=== PATIENT | male | born 1985 | race Caucasian/White ===

== ENCOUNTER 2024-03-30 01:33 | Emergency (ER) | payer MEDICAID, SELFPAY ==
[2024-03-30 01:34] VITALS: BMI 25.6
[2024-03-30 01:48] VITALS: BP 132/84; PULSE 69; RESP 19; TEMP 36.6; O2SAT 98
--- NOTE | 2024-03-30 01:56 | PD.EDDENTL ---
ED Dental RME/HPI General Chief complaint: Dental/Oral/Throat Stated complaint: TOOTH PAIN Time Seen by Provider: 03/30/24 01:39 Source: patient Arrival date/time: 03/30/24 01:33 38-year-old male presents emergency department complaining of right upper tooth pain for approximately 1 week. Patient denies any fever, chills, cough, sore throat, ear pain, or any other associated symptom. Mode of arrival: ambulatory Limitations: no limitations Related Data Previous Rx's ?Medication ?Instructions ?Recorded amoxicillin 875 mg-potassium 1 tab PO BID 7 days #14 tabs 03/30/24 clavulanate 125 mg tablet ibuprofen 600 mg tablet 600 mg PO Q8H PRN pain #20 tabs 03/30/24 Allergies Allergy/AdvReac Type Severity Reaction Status Date / Time No Known Allergies Allergy Verified 03/30/24 01:35 Review of Systems Review of Systems Systems Reviewed: All systems reviewed, normal except as documented Constitutional Constitutional: Reports system reviewed and no additional complaints, except as documented, Denies body ache(s), Denies chills and Denies fever(s) Eyes Eyes: Reports system reviewed and no additional complaints, except as documented and Denies change in vision ENT Ears, Nose, Mouth, and Throat: Reports system reviewed and no additional complaints, except as documented, Denies disequilibrium, Denies dizziness, Reports mouth pain, Denies sore throat, Denies vertigo and Reports other (Tooth pain) Cardiovascular Cardiovascular: Reports system reviewed and no additional complaints, except as documented, Denies chest pain and Denies dyspnea Respiratory Respiratory: Reports system reviewed and no additional complaints, except as documented, Denies chest congestion, Denies cough and Denies dyspnea Gastrointestinal Gastrointestinal: Reports system reviewed and no additional complaints, except as documented, Denies abdominal pain, Denies nausea and Denies vomiting Musculoskeletal Musculoskeletal: Reports system reviewed and no additional complaints, except as documented, Denies abnormal gait and Denies arthralgias Integumentary/Breasts Skin/Breast: Reports system reviewed and no additional complaints, except as documented, Denies erythema, Denies rash and Denies wounds Neurologic Neurologic: Reports system reviewed and no additional complaints, except as documented, Denies abnormal gait, Denies disequilibrium, Denies dizziness and Denies vertigo Past Medical History Social History SMOKING STATUS: Current some day smoker ED Exam General Limitations: Present no limitations General appearance: Present alert and in no apparent distress Head Head exam: Present atraumatic Eye Eye exam: Present normal appearance, PERRL and EOMI ENT ENT exam: Present normal exam, normal oropharynx and mucous membranes moist Expanded ENT Exam Teeth exam: Present dental caries, dental tenderness # and gingival swelling Neck Neck exam: Present normal inspection, full ROM and trachea midline Chest Chest inspection: Present normal inspection and symmetric chest wall rise Respiratory Respiratory exam: Present normal lung sounds bilaterally Cardiovascular Cardiovascular exam: Present regular rate, normal rhythm and normal heart sounds Abdominal Exam Abdominal exam: Present soft and normal bowel sounds Extremities Exam Extremities exam: Present normal inspection and full ROM Back Exam Back exam: Present normal inspection and full ROM Neurological Exam Neurological exam: Present alert, oriented X3 and CN II-XII intact Psychiatric Psychiatric exam: Present normal affect and normal mood Skin Skin exam: Present warm, dry, intact and normal color Course Quality Measures none Orders Category Date Time Status Amoxicillin/Pot Clav 875 [Augmentin 875] Med 03/30/24 01:55 Discontinued 1 tab PO X1 ONE Ketorolac Inj [Toradol Inj] Med 03/30/24 01:55 Discontinued 30 mg IM X1 ONE Vital Signs Vital signs: Vital Signs Temperature 97.9 F 03/30/24 01:48 Pulse Rate 69 03/30/24 01:48 Respiratory Rate 19 03/30/24 01:48 Blood Pressure 132/84 H 03/30/24 01:48 Pulse Oximetry (%) 98 03/30/24 01:48 Oxygen Delivery Method Room Air 03/30/24 01:48 98% room air within normal limits Dental / Oral MDM Narrative MDM Narrative:: 38-year-old male presents emergency department complaining of right upper tooth pain for approximately 1 week. Patient denies any fever, chills, cough, sore throat, ear pain, or any other associated symptom. Right lateral upper mandible tooth observed to be infected with localized gingival swelling likely infected tooth. Patient will be treated with antibiotics and instructed to follow-up with dentist upon discharge. Patient data External records reviewed:: [facility] previous records Clinical information provided by:: patient Social determinants that could affect healthcare access:: none Patient has the following chronic illnesses:: None How is presenting disease/condition affected by chronic disease/condition?: no chronic disease Evaluation data The following diagnostics were reviewed and interpreted by me:: other (specify) (N/A) Lab and/or radiology exams considered but not ordered:: N/A Interpretation Summary: N/A Medications / Prescriptions Medications or Prescriptions considered but not ordered:: Ordered Medication administrations:: Medication Administration History Discontinued Medications Amoxicillin/Clavulanate Potassium (Amoxicillin/Pot Clav 875 Tablet) 1 tab PO X1 ONE Stop: 03/30/24 01:56 Ketorolac Tromethamine (Ketorolac Inj 60 Mg/2 Ml Vial) 30 mg IM X1 ONE Stop: 03/30/24 01:56 Given Consultations Consultation(s) initiated? (list below): No Diagnosis Dental Differential Diagnosis: gingival abscess, dental caries, toothache and dental abscess Most likely diagnosis given after review of the tests above:: Infected tooth Admission Indicated Admission indicated?: not indicated Admission Request Was there a request for admission?: No Disposition Plan Disposition Plan: Discharge Discharge Attestation Discharge Attestation: The patient and all family members were given an opportunity to ask questions and understood the discharge instructions. Discharge instructions specifically effects, indications for sooner follow up or return to the emergency department, and the expected course of current diagnosis. Patient condition: Stable Discharge Plan Plan Patient Disposition: HOME (Self Care) Disposition Comment: Stable Prescriptions/Referrals Prescriptions/Med Rec: New ibuprofen 600 mg tablet 600 mg PO Q8H PRN (Reason: pain) Qty: 20 0RF amoxicillin-pot clavulanate 875-125 mg tablet 1 tab PO BID 7 Days Qty: 14 0RF Problem List Clinical Impression: Infected tooth Patient/Caregiver Discharge Instructions Discharge Activity: activity as tolerated Education Materials: ED Tooth Abscess Additional Instructions: Drink plenty of fluids. Take ibuprofen or Tylenol as needed for pain. Take antibiotics as prescribed. Follow-up with dentist within 1 week. Return to emergency department for any worsening symptoms or as needed. Print Language: Spanish Stand Alone Forms: Maryann Award Info., Patient Portal Info Letter PA/TWISTING FRAME FIXER Supervising Physician PA/TWISTING FRAME FIXER Supervising Physician: Dr. Torres
[2024-03-30] MEDS: KETOROLAC INJ 60 MG/2 ML VIAL 30 MG IM (02:13)
[2024-03-30] MEDS: AMOXICILLIN/POT CLAV 875 TABLET 1 TAB PO (02:13)
[2024-03-30 02:24] VITALS: BP 128/76; PULSE 70; RESP 18; TEMP 36.8; O2SAT 98
== END 2024-03-30 02:24 | disposition home or self-care (01) ==
LOC: SERX 03:39
PROVIDERS: Emergency Provider Emergency Medicine
DX: K04.7 Periapical abscess without sinus (principal)
CPT/HCPCS: 96372; 99283; J1885; A9270